=== PATIENT | male | born 1955 | race Two or more races ===

== ENCOUNTER 2020-01-12 09:26 | Inpatient (IN) | payer MEDICARE, MEDICAID ==
[~2020-01-12] VITALS: Ht 157.5 cm; Wt 59.0 kg
--- NOTE | 2020-01-12 09:26 | NUR ---
ED Nurse Note: Pt MORGANA RA 32 from the [facility] d/t generalized weakness and bilateral leg pain 05/15 x 2 days. Pt altered, A+Ox1. Respirations even and unlabored on room air. Vitals stable as documented.
[2020-01-12 09:30] VITALS: BP 142/79
--- NOTE | 2020-01-12 09:56 | NUR ---
ED Nurse Note: Xray @ bedside
--- NOTE | 2020-01-12 10:16 | NUR ---
ED Nurse Note: blood and urine sent to lab
[2020-01-12 10:29] LABS: HEMATOCRIT 35.5 % (42.0-52.0); HEMOGLOBIN 12.7 G/DL (14.2-18.0); MEAN CORPUSCULAR VOLUME 93 FL (80-99); PLATELET COUNT 99 K/UL (150-450); RED BLOOD COUNT 3.81 M/UL (4.70-6.10); RED CELL DISTRIBUTION WIDTH 11.7 % (11.6-14.8); WHITE BLOOD COUNT 11.6 K/UL (4.8-10.8)
[2020-01-12 10:30] LABS: APPEARANCE,URINE CLEAR; BILIRUBIN, URINE NEGATIVE (NEGATIVE); GLUCOSE, URINE (UA) NEGATIVE (NEGATIVE); KETONES,URINE 1+ (NEGATIVE); LEUKOCYTE ESTERASE ,URINE NEGATIVE (NEGATIVE); NITRITE,URINE NEGATIVE (NEGATIVE); PH,URINE 6 (4.5-8.0); PROTEIN,URINE NEGATIVE (NEGATIVE); UROBILINOGEN,URINE 8 MG/DL (0.0-1.0)
--- NOTE | 2020-01-12 10:32 | Emergency Room Report ---
History of Present Illness General Chief Complaint: Pain Source: Patient, EMS Present Illness HPI 64-year-old male, history of hypertension and diabetes presented from the street for right knee pain. Patient reports a history of hypertension and diabetes but is a very poor historian and seems confused on exam. It is unclear if he is homeless or from a home or intermediate or alf. Patient has no other complaints at this time but is repetitive on exam. He reports 8 out of 10 right knee pain. He does not describe any trauma. Allergies: Coded Allergies: No Known Allergies (Unverified , 01/12/20) COVID-19 Screening Contact w/high risk pt: No Recent Travel to affected area: No Experienced COVID-19 symptoms?: No Patient History Reviewed Nursing Documentation: PMH: Agreed; PSxH: Agreed Nursing Documentation-PM Past Medical History: No Stated History Review of Systems All Other Systems: limited - Due to patient's presentation with altered mental status Physical Exam Vital Signs Date Time Temp Pulse Resp B/P (MAP) Pulse Ox O2 Delivery O2 Flow Rate FiO2 01/12/20 09:16 82 20 140/76 (97) 99 Sp02 EP Interpretation: reviewed, normal General Appearance: non-toxic, thin Head: normocephalic, atraumatic Eyes: bilateral eye PERRL, bilateral eye EOMI ENT: hearing grossly normal, moist mucus membranes Neck: full range of motion, supple Respiratory: lungs clear, normal breath sounds, no rhonchi, no respiratory distress, no retraction, no wheezing Cardiovascular #1: normal peripheral pulses, regular rate, rhythm, no murmur Gastrointestinal: non tender, soft, non-distended, no guarding Musculoskeletal: other - Right knee mildly swollen full range of motion mild tenderness no erythema. Neurologic: alert, grossly normal, no focal defects, other - Moves all extremities equally Skin: normal color, warm/dry Medical Decision Making Diagnostic Impression: Primary Impression: Encephalopathy Additional Impressions: Generalized weakness Right knee pain ER Course MDM: Patient presented for right knee pain. He was altered on exam. It is unclear if he has a history of dementia. He presented by EMS from the street so history is limited. differential diagnosis: Dementia, failure to thrive, dehydration, did consider infectious process, arthritis, chronic pain. Clinical course Patient placed on stretcher. On campus monitor. After initial history and physical I ordered labs, CT scan of the brain, x-ray of the knee, pain medication Labs -no leukocytosis, urine drug screen negative On reevaluation: Patient remained mildly confused. Diagnosis -encephalopathy, generalized weakness, failure to thrive Plan to admit the patient to the medical floor for further observation and treatment. Again is unclear where the patient resides whether at home or nursing facility but currently not stable for discharge. Laboratory Tests Test 01/12/20 10:05 01/12/20 16:00 01/13/20 05:45 01/13/20 10:40 White Blood Count 11.6 K/UL (4.8-10.8) H Red Blood Count 3.81 M/UL (4.70-6.10) L Hemoglobin 12.7 G/DL (14.2-18.0) L Hematocrit 35.5 % (42.0-52.0) L Mean Corpuscular Volume 93 FL (80-99) Mean Corpuscular Hemoglobin 33.2 PG (27.0-31.0) H Mean Corpuscular Hemoglobin Concent 35.7 G/DL (32.0-36.0) Red Cell Distribution Width 11.7 % (11.6-14.8) Platelet Count 99 K/UL (150-450) L Mean Platelet Volume 7.1 FL (6.5-10.1) Neutrophils (%) (Auto) % (45.0-75.0) Lymphocytes (%) (Auto) % (20.0-45.0) Monocytes (%) (Auto) % (1.0-10.0) Eosinophils (%) (Auto) % (0.0-3.0) Basophils (%) (Auto) % (0.0-2.0) Differential Total Cells Counted 100 Neutrophils % (Manual) 81 % (45-75) H Lymphocytes % (Manual) 12 % (20-45) L Monocytes % (Manual) 7 % (1-10) Eosinophils % (Manual) 0 % (0-3) Basophils % (Manual) 0 % (0-2) Band Neutrophils 0 % (0-8) Platelet Estimate Decreased L Platelet Morphology Normal Red Blood Cell Morphology Normal Urine Color Yellow Urine Appearance Clear Urine pH 6 (4.5-8.0) Urine Specific [place] 1.015 (1.005-1.035) Urine Protein Negative (NEGATIVE) Urine Glucose (UA) Negative (NEGATIVE) Urine Ketones 1+ (NEGATIVE) H Urine Blood Negative (NEGATIVE) Urine Nitrite Negative (NEGATIVE) Urine Bilirubin Negative (NEGATIVE) Urine Urobilinogen 8 MG/DL (0.0-1.0) H Urine Leukocyte Esterase Negative (NEGATIVE) Sodium Level 135 MMOL/L (136-145) L 142 MMOL/L (136-145) Potassium Level 4.8 MMOL/L (3.5-5.1) 4.0 MMOL/L (3.5-5.1) Chloride Level 101 MMOL/L (98-107) 109 MMOL/L (98-107) H Carbon Dioxide Level 20 MMOL/L (21-32) L 23 MMOL/L (21-32) Anion Gap 14 mmol/L (5-15) 10 mmol/L (5-15) Blood Urea Nitrogen 32 mg/dL (7-18) H 42 mg/dL (7-18) H Creatinine 2.2 MG/DL (0.55-1.30) H 1.6 MG/DL (0.55-1.30) H Estimated Glomerular Filtration Rate 30.1 mL/min (>60) 43.5 mL/min (>60) Glucose Level 163 MG/DL (74-106) H 117 MG/DL (74-106) H Calcium Level 9.2 MG/DL (8.5-10.1) 8.1 MG/DL (8.5-10.1) L Total Bilirubin 2.1 MG/DL (0.2-1.0) H 1.6 MG/DL (0.2-1.0) H Direct Bilirubin 0.8 MG/DL (0.0-0.3) H 0.6 MG/DL (0.0-0.3) H Aspartate Amino Transferase (AST) 60 U/L (15-37) H 98 U/L (15-37) H Alanine Aminotransferase (ALT) 43 U/L (12-78) 41 U/L (12-78) Alkaline Phosphatase 76 U/L (46-116) 51 U/L (46-116) Total Protein 7.6 G/DL (6.4-8.2) 5.9 G/DL (6.4-8.2) L Albumin 3.3 G/DL (3.4-5.0) L 2.5 G/DL (3.4-5.0) L Globulin 4.3 g/dL 3.4 g/dL Albumin/Globulin Ratio 0.8 (1.0-2.7) L 0.7 (1.0-2.7) L Urine Opiates Screen Negative (NEGATIVE) Urine Barbiturates Screen Negative (NEGATIVE) Phencyclidine (PCP) Screen Negative (NEGATIVE) Urine Amphetamines Screen Negative (NEGATIVE) Urine Benzodiazepines Screen Negative (NEGATIVE) Urine Cocaine Screen Negative (NEGATIVE) Urine Marijuana (THC) Screen Negative (NEGATIVE) Serum Alcohol < 3 mg/dL Ammonia 68 umol/L (11-32) H 177 umol/L (11-32) H Hepatitis B Surface Antigen Pending Hepatitis B Surface Antibody, Quant Pending Hepatitis C Antibody Pending Last Vital Signs Date Time Temp Pulse Resp B/P (MAP) Pulse Ox O2 Delivery O2 Flow Rate FiO2 01/12/20 09:16 82 20 140/76 (97) 99 Disposition: ADMITTED INPATIENT Condition: Serious Scripts Unable to Obtain Active Prescriptions or Reported Meds Referrals: NOT CHOSEN IPA/,REFERRING (PCP) Lance Schmidt M.D. Jan 12, 2020 10:32
[2020-01-12 10:36] LABS: ANION GAP 14 mmol/L (5-15); BLOOD UREA NITROGEN 32 mg/dL (7-18); CALCIUM 9.2 MG/DL (8.5-10.1); CARBON DIOXIDE 20 MMOL/L (21-32); CHLORIDE 101 MMOL/L (98-107); CREATININE 2.2 MG/DL (0.55-1.30); POTASSIUM 4.8 MMOL/L (3.5-5.1); SODIUM 135 MMOL/L (136-145)
[2020-01-12 10:47] LABS: ALANINE AMINOTRANSFERASE 43 U/L (12-78); ALBUMIN 3.3 G/DL (3.4-5.0); ALBUMIN/GLOBULIN RATIO 0.8 (1.0-2.7); ALKALINE PHOSPHATASE 76 U/L (46-116); ASPARTATE AMINO TRANSFERASE 60 U/L (15-37); BILIRUBIN,TOTAL 2.1 MG/DL (0.2-1.0)
[2020-01-12 10:51] LABS: BILIRUBIN,DIRECT 0.8 MG/DL (0.0-0.3)
--- NOTE | 2020-01-12 11:07 | Diagnostic Imaging Report ---
Indications: Altered mental status Technique: Spiral acquisitions obtained through the brain. Angled axial and coronal 5 x 5 mm slices were reconstructed. Total dose length product 1072 mGycm. CTDI vol(s) 53 mGy. Dose reduction achieved using automated exposure control Comparison: None. Findings: There is age-related enlargement of the extra axial CSF spaces and to lesser extent the ventricles. There is also considerable cerebellar volume loss. No acute intercranial hemorrhage or edema. Banegas-white differentiation is normal. No mass effect nor midline shift. Visualized orbits are unremarkable. There is absent pneumatization of the left mastoids. There is evidence of some material within the left middle ear cavity. Impression: Cerebral volume loss, mostly cortical and cerebellar Negative for acute intracranial bleed or mass effect Nonpneumatized left mastoid air cells. There is evidence of some inflammatory material within the left middle ear cavity. Correlate with clinical findings The CT scanner at [facility] is accredited by the [employer] and the scans are performed using protocols designed to limit radiation exposure to as low as reasonably achievable to attain images of sufficient resolution adequate for diagnostic evaluation.
[2020-01-12 11:15] LABS: COLOR,URINE YELLOW
--- NOTE | 2020-01-12 11:50 | Diagnostic Imaging Report ---
Indication: Right knee pain Technique: 3 views of the right knee Comparison: None Findings: No acute fractures. No dislocations. No effusions. The joint spaces are preserved Impression: Negative
[2020-01-12] MEDS ORDERED: Acetaminophen 500mg (ES) tab ORAL PRN (12:30)
--- NOTE | 2020-01-12 12:46 | NUR ---
ED Nurse Note: Report given to Gianluca HENLEY MS floor.
--- NOTE | 2020-01-12 15:29 | NUR ---
NURSE NOTES: I received telephone report from LORY Tijerina; patient alert x1, Paraguayan speaking; on room air, no sing of distress and shortness of breath; no sing of chest pain; IV Left AC flushes well; skin intact except scabs on both lower extremities; side rails up x3, breaks engaged, bed at lowest position; call light within reach; belonging list signed by transferring and receiving nurse; will keep monitoring.
--- NOTE | 2020-01-12 15:35 | Diagnostic Imaging Report ---
Indication: Abnormal liver function tests, abnormal renal function tests Technique: Banegas-scale and duplex images of the upper abdomen were obtained Comparison: none Findings: Gallbladder demonstrates no gallstones. No gallbladder wall thickening nor pericholecystic fluid. It is nondistended. No gallbladder wall thickening or pericholecystic fluid. Sonographic Navarrete's sign could not be assessed due to patient noncommunicative. Common bile duct measures 3 mm in diameter. No intrahepatic biliary ductal dilatation. Liver demonstrates coarsened echogenicity. It demonstrates surface nodularity There is a nodular exophytic area which appears to be isointense to normal hepatic parenchyma extending off of the left hepatic lobe. This measures 2.7 x 2.9 cm. Portal vein and hepatic veins are patent. Pancreas is unremarkable. Spleen is unremarkable. However, prominent veins are seen in the splenic hilum. Left kidney measures 10.5 cm in length. Right kidney measures 9.3 cm length. Both kidneys demonstrate normal echogenicity. There is no hydronephrosis. No focal abnormality . Non-aneurysmal abdominal aorta . Impression: Negative for gallstones or dilated bile ducts Coarsened hepatic echogenicity with surface nodularity, suggestive of cirrhosis 2.7 x 2.9 cm exophytic left lobe liver mass versus normal lobulated parenchyma. Recommend contrast CT for better characterization Possible splenic hilar varices. Normal size spleen
--- NOTE | 2020-01-12 15:44 | NUR ---
NURSE NOTES: I communicated MD Romano to get admission order; waiting for order
[2020-01-12] MEDS: D5NS 1,000 ML IV SCH (15:49)
[2020-01-12] MEDS ORDERED: Haloperidol 5mg/ml Inj IM PRN (16:00)
[2020-01-12 16:20] VITALS: BP 130/88
--- NOTE | 2020-01-12 17:10 | Diagnostic Imaging Report ---
Indication: Chest pain Technique: One view of the chest Comparison: none Findings: Lungs and pleural spaces are clear. Heart size is normal. Impression: No acute process
[2020-01-12] MEDS: Lactulose 20gm/30ml UDC ORAL SCH (17:22)
--- NOTE | 2020-01-12 17:30 | NUR ---
NURSE NOTES: Patient risk for fall; patient instructed to call for help; side rials up x3, breaks engaged, bed at lowest position, bed alarm on, call light within reach; sign at the door showing that patient is risk for fall; nursing executive Tremaine is aware that patient is risk for fall; charge nurse Sreedhar is aware that patient is risk for fall; will keep monitoring.
[2020-01-12] MEDS: Piperacillin/Tazobactam 3.375 GM in NS 110 ML IVPB SCH ×2 (18:13→23:02)
--- NOTE | 2020-01-12 19:33 | NUR ---
HAND-OFF: Report given to LORY West. Endorsed to the incoming nurse that patient is risk for fall; patient sleeping quitly;
[2020-01-12 19:51] VITALS: BP 127/50
--- NOTE | 2020-01-12 20:19 | NUR ---
NURSE NOTES: Received patient awake, verbal, speaks little Cuban, assisted to the bathroom to urinate. Bed lowered, alarm on, yellow socks on, call light within reach.
[2020-01-12] MEDS: Heparin 5000 units/ml inj SUBQ SCH (21:00)
--- NOTE | 2020-01-12 22:23 | Initial Psychiatric Evaluation ---
Psychiatry Consultation Psychiatry Consultation Chief Complaint: Pain Allergies: Coded Allergies: No Known Allergies (Unverified , 01/12/20) Medication History Unable to Obtain Active Prescriptions or Reported Meds Objective Data Height (Feet): 5 Height (Inches): 2.00 Weight (Pounds): 130 Davin Swann MD Jan 12, 2020 22:23
--- NOTE | 2020-01-12 23:00 | History and Physical Report ---
DATE OF ADMISSION: 01/12/2020 CHIEF COMPLAINT: Encephalopathy and altered mental status. HISTORY OF PRESENT ILLNESS: Patient is 64-year-old male. He apparently has no past medical history. He was found on the street confused and daze. He was brought to the emergency room. On evaluation there, he had a head CT that was negative. Laboratories were significant for a slight leukocytosis of 12,000. UA was clear. Chest x-ray results are pending. He did have a low sodium and creatinine of 2.2. He is now admitted for further evaluation for continued altered mentation. PAST MEDICAL HISTORY: None. PAST SURGICAL HISTORY: None. CURRENT MEDICATIONS: None. ALLERGIES: None. FAMILY HISTORY: None. SOCIAL HISTORY: Patient denies any tobacco, ethanol, or drugs. REVIEW OF SYSTEMS: GENERAL: No fevers or chills. HEENT: No headaches or visual changes. CARDIOPULMONARY: No chest pain or shortness of breath. GASTROINTESTINAL: No nausea or vomiting. GENITOURINARY: No urgency or frequency. MUSCULOSKELETAL: No joint pain or swelling. NEUROLOGIC: No evidence of seizures. PHYSICAL EXAMINATION: VITAL SIGNS: Temperature 97.9, pulse 86, respirations 17, blood pressure 130/88. GENERAL: Patient is well developed, no apparent distress. HEART: Regular rate and rhythm. LUNGS: Clear. ABDOMEN: Soft, nontender, nondistended. EXTREMITIES: Without clubbing or cyanosis. NEUROLOGIC: The patient is confused. Only knows his name. There is some questionable asterixis noted. LABORATORY DATA: UA clear. White count 12, hemoglobin 12, hematocrit 35. Sodium 135, creatinine 2.2. Total bilirubin of 2.1. Toxicology screen was negative. ASSESSMENT: This is a 64-year-old male with no past medical history who presents with altered mental status, suspect underlying chronic liver disease, and possible hepatic encephalopathy. PLAN: 1. Check an ammonia level. 2. Follow up abdominal ultrasound. 3. IV hydration. 4. Empiric antibiotics until cultures return. Stephon Romano M.D. DR: SHAWN JOB#: [id number] CC:
[2020-01-13] VITALS (8 sets, daily range): BP systolic 105–156; BP diastolic 49–84
[2020-01-13] MEDS: D5NS 1,000 ML IV SCH ×2 (02:20→15:49)
[2020-01-13] MEDS: Piperacillin/Tazobactam 3.375 GM in NS 110 ML IVPB SCH ×3 (04:58→21:16)
[2020-01-13 06:30] LABS: AMMONIA 177 umol/L (11-32)
[2020-01-13 06:43] LABS: ALANINE AMINOTRANSFERASE 41 U/L (12-78); ALBUMIN 2.5 G/DL (3.4-5.0); ALBUMIN/GLOBULIN RATIO 0.7 (1.0-2.7); ALKALINE PHOSPHATASE 51 U/L (46-116); ANION GAP 10 mmol/L (5-15); ASPARTATE AMINO TRANSFERASE 98 U/L (15-37); BILIRUBIN,DIRECT 0.6 MG/DL (0.0-0.3); BILIRUBIN,TOTAL 1.6 MG/DL (0.2-1.0); BLOOD UREA NITROGEN 42 mg/dL (7-18); CALCIUM 8.1 MG/DL (8.5-10.1); CARBON DIOXIDE 23 MMOL/L (21-32); CHLORIDE 109 MMOL/L (98-107); CREATININE 1.6 MG/DL (0.55-1.30); SODIUM 142 MMOL/L (136-145)
--- NOTE | 2020-01-13 07:00 | NUR ---
NURSE NOTES: Received patient in bed. Awake, alert x1. On room air, respirations unlabored. Iv in the right forearm, site is intact, IVF running as ordered. Pateint denies pain at this time. Patient is a high fall risk. CN and TECHNICIAN TRAINEE made aware. Patient placed closed to the nurse's station for safety. Patient oriented to room and surroundings. Patient educated on use of the call light and informed to call for restroom needs, patient returned demonstration. Bed alarm placed on high sensitivity. Bed rails up x4, bed at the lowest position, bed locked, call light within reach. Yellow socks in place.
--- NOTE | 2020-01-13 07:00 | NUR ---
HAND-OFF: Report given to Jena HENLEY.
--- NOTE | 2020-01-13 07:25 | NUR ---
HAND-OFF: Report given to Justin Bass RN.
[2020-01-13] MEDS: Lactulose 20gm/30ml UDC ORAL SCH ×3 (08:25→17:18)
[2020-01-13] MEDS: Heparin 5000 units/ml inj SUBQ SCH ×2 (09:00→21:00)
--- NOTE | 2020-01-13 09:00 | NUR ---
NURSE NOTES: Heparin held d/t platelets of 99.
--- NOTE | 2020-01-13 10:04 | General Progress Note ---
Assessment/Plan Problem List: (1) Cirrhosis ICD Codes: K74.60 - Unspecified cirrhosis of liver SNOMED: 81540380 (2) Hepatic encephalopathy ICD Codes: K72.90 - Hepatic failure, unspecified without coma SNOMED: 86560259 (3) Encephalopathy ICD Codes: G93.40 - Encephalopathy, unspecified SNOMED: 62594564 (4) Pain ICD Codes: R52 - Pain, unspecified SNOMED: 76176326 Status: stable, not improved Assessment/Plan: Continue current treatment. Increase lactulose 30 cc 3 times daily. Will trend ammonia level. IV hydration. Continue DVT and stress ulcer prophylaxis. Check a hepatitis panel. Will consider GI consultation. Subjective ROS Limited/Unobtainable: Yes Constitutional: Reports: malaise, weakness HEENT: Reports: no symptoms Cardiovascular: Reports: no symptoms Respiratory: Reports: no symptoms Gastrointestinal/Abdominal: Reports: no symptoms Genitourinary: Reports: no symptoms Neurologic/Psychiatric: Reports: pre-existing deficit Endocrine: Reports: no symptoms Hematologic/Lymphatic: Reports: no symptoms Allergies: Coded Allergies: No Known Allergies (Unverified , 01/12/20) All Systems: reviewed and negative except above Subjective There is been no overnight events. Patient remains confused. Ammonia level is increasing. Patient is been compliant with medications including his lactulose. No fevers or chills. No chest pain or shortness of breath. No cough Objective Last 24 Hour Vital Signs Date Time Temp Pulse Resp B/P (MAP) Pulse Ox O2 Delivery O2 Flow Rate FiO2 01/13/20 08:00 98.4 69 18 105/52 (69) 100 01/13/20 04:00 98.0 90 20 119/56 (77) 97 01/13/20 00:25 98.4 82 18 114/59 (77) 98 01/12/20 20:42 Room Air 01/12/20 19:51 98.0 101 18 127/50 (75) 99 01/12/20 18:02 Room Air 01/12/20 16:20 97.9 86 17 130/88 (102) 86 01/12/20 14:50 98.3 68 16 135/87 99 Room Air 01/12/20 11:23 98.2 Intake and Output 01/12/20 01/13/20 19:00 07:00 Intake Total 150 ml 740.0 ml Balance 150 ml 740.0 ml Intake Oral 240 ml IV Total 150 ml 500.0 ml # Voids 1 4 Laboratory Tests 01/12/20 10:05: White Blood Count 11.6H, Red Blood Count 3.81L, Hemoglobin 12.7L, Hematocrit 35.5L, Mean Corpuscular Volume 93, Mean Corpuscular Hemoglobin 33.2H, Mean Corpuscular Hemoglobin Concent 35.7, Red Cell Distribution Width 11.7, Platelet Count 99L, Mean Platelet Volume 7.1, Neutrophils (%) (Auto) , Lymphocytes (%) ( Auto) , Monocytes (%) (Auto) , Eosinophils (%) (Auto) , Basophils (%) (Auto) , Differential Total Cells Counted 100, Neutrophils % (Manual) 81H, Lymphocytes % (Manual) 12L, Monocytes % (Manual) 7, Eosinophils % (Manual) 0, Basophils % ( Manual) 0, Band Neutrophils 0, Platelet Estimate DecreasedL, Platelet Morphology Normal, Red Blood Cell Morphology Normal, Urine Color Yellow, Urine Appearance Clear, Urine pH 6, Urine Specific [place] 1.015, Urine Protein Negative, Urine Glucose (UA) Negative, Urine Ketones 1+H, Urine Blood Negative, Urine Nitrite Negative, Urine Bilirubin Negative, Urine Urobilinogen 8H, Urine Leukocyte Esterase Negative, Sodium Level 135L, Potassium Level 4.8, Chloride Level 101, Carbon Dioxide Level 20L, Anion Gap 14, Blood Urea Nitrogen 32H, Creatinine 2.2H, Estimat Glomerular Filtration Rate 30.1, Glucose Level 163H, Calcium Level 9.2, Total Bilirubin 2.1H, Direct Bilirubin 0.8H, Aspartate Amino Transf (AST/SGOT) 60H, Alanine Aminotransferase (ALT/SGPT) 43, Alkaline Phosphatase 76, Total Protein 7.6, Albumin 3.3L, Globulin 4.3, Albumin/Globulin Ratio 0.8L, Urine Opiates Screen Negative, Urine Barbiturates Screen Negative, Phencyclidine (PCP) Screen Negative, Urine Amphetamines Screen Negative, Urine Benzodiazepines Screen Negative, Urine Cocaine Screen Negative, Urine Marijuana (THC) Screen Negative, Serum Alcohol < 3 01/12/20 16:00: Ammonia 68H 01/13/20 05:45: Sodium Level 142, Potassium Level 4.0, Chloride Level 109H, Carbon Dioxide Level 23, Anion Gap 10, Blood Urea Nitrogen 42H, Creatinine 1.6H, Estimat Glomerular Filtration Rate 43.5, Glucose Level 117H, Calcium Level 8.1L, Total Bilirubin 1.6H, Direct Bilirubin 0.6H, Aspartate Amino Transf (AST/SGOT) 98H, Alanine Aminotransferase (ALT/SGPT) 41, Alkaline Phosphatase 51, Total Protein 5.9L, Albumin 2.5L, Globulin 3.4, Albumin/Globulin Ratio 0.7L, Ammonia 177H Height (Feet): 5 Height (Inches): 2.00 Weight (Pounds): 130 General Appearance: WD/WN, alert, confused Cardiovascular: normal rate Respiratory/Chest: chest wall non-tender, lungs clear, normal breath sounds, no respiratory distress Abdomen: normal bowel sounds, non tender, soft, no organomegaly Edema: no edema noted Arm (L), no edema noted Arm (R), no edema noted Leg (L), no edema noted Leg (R), no edema noted Pedal (L), no edema noted Pedal (R), no edema noted Generalized Neurologic: commercial insurance underwriter II-XII grossly normal, alert, oriented x 3 Stephon Romano MD Jan 13, 2020 10:04
--- NOTE | 2020-01-13 10:17 | NUR ---
CASE MANAGEMENT:INITIAL REVIEW 64 YR OLD MALE BIBA FROM THE STRE[address] CC;PAIN PMH;UNKNOWN SI;ENCEPHALOPATHY. GENERALIZED WEAKNESS. 98.3 86 20 142/79 99% ON RA WBC 11.6 NA 135 BUN 32 CR 2.2 BG 163 T-BILI 2.1 AMMONIA 68 CXR ~ NO ACUTE PROCESS KNEE X-RAY ~ NEGATIVE HEAD CT ~ Negative for acute intracranial bleed or mass effect. Cerebral volume loss, mostly cortical and cerebellar. ABD US ~ Negative for gallstones or dilated bile ducts IS;IVF NS BOLUS X1 ACETAMINOPHEN PO X1 ADMITTED TO MED SURG AT 1603 ON 01/12/2020 MED SURG STATUS DCP;PATIENT IS HOMELESS
--- NOTE | 2020-01-13 12:15 | NUR ---
*-* INSURANCE *-* ALL CLINICALS AND REVIEWS HAVE BEEN FAXED TO: [facility]/[place]) MED [employer] HANDLING PROFESSIONAL P: [phone] F: [phone] (VERIFIED WITH KARRI AT [facility], THAT THEY ARE AFFILIATED WITH [facility] AND THAT THEY HANDLE THE ADMISSIONS, ADVISED TO FAX FACE SHEET OVER TO [facility]) & [place]LENA F: [phone] Addendum: 01/13/20 at 1412 by CHAR BROWN CM NCM: NICKY
--- NOTE | 2020-01-13 14:01 | NUR ---
GAS OPERATIONS ANALYST NOTE SW met w/ pt and attempted to obtain information through green coffee blender [employer] #[id number]. Pt presents as confused and A&O 1x. Pt reports he is living w/ his brother but he was unable to recall his brother's name. Pt was unable to recall the address as well. SW spoke w/ Officer Irvin from [facility] [phone] that pt is not reported as missing. ALFONSO contacted possible family member, Chelly Nava [phone]. Chelly confirmed she is pt's sister. Chelly is monolingual Turkish. Chelly's son, Yeyo who is bilingual confirmed pt is residing w/ Chelly at [address] [place], [place] [id number]. Pt has been missing for two days. Addendum: 01/13/20 at 1453 by SHELLEY HAMILTON Per Yeyo, pt becomes more confused when he does not take medication. He was unable to recall the name of home medication.
--- NOTE | 2020-01-13 15:18 | NUR ---
P.T Note: late entry 0945 P.T evaluation completed and tx initiated. Please refer to P.T evaluation for full report.
--- NOTE | 2020-01-13 16:39 | Consultation ---
Consult Note Consult Note INTERNAL MEDICINE CONSULTATION HISTORY OF PRESENT ILLNESS: Patient is 64-year-old male. He no past medical history. He was found on the street confused and daze. He was brought to the emergency room. On evaluation there, he had a head CT that was negative. Laboratories were significant for a slight leukocytosis of 12,000. UA was clear. Chest x-ray results are pending. He did have a low sodium and creatinine of 2.2. He is now admitted for further evaluation for continued altered mentation. PAST MEDICAL HISTORY: None. PAST SURGICAL HISTORY: None. CURRENT MEDICATIONS: None. ALLERGIES: None. FAMILY HISTORY: None. SOCIAL HISTORY: Patient denies any tobacco, ethanol, or drugs. REVIEW OF SYSTEMS: GENERAL: No fevers or chills. HEENT: No headaches or visual changes. CARDIOPULMONARY: No chest pain or shortness of breath. GASTROINTESTINAL: No nausea or vomiting. GENITOURINARY: No urgency or frequency. MUSCULOSKELETAL: No joint pain or swelling. NEUROLOGIC: No evidence of seizures. PHYSICAL EXAMINATION: VITAL SIGNS: Temperature 97.9, pulse 86, respirations 17, blood pressure 130/88. GENERAL: Patient is well developed, no apparent distress. HEART: Regular rate and rhythm. LUNGS: Clear. ABDOMEN: Soft, nontender, nondistended. EXTREMITIES: Without clubbing or cyanosis. NEUROLOGIC: The patient is confused. Only knows his name. There is some questionable asterixis noted. LABORATORY DATA: UA clear. White count 12, hemoglobin 12, hematocrit 35. Sodium 135, creatinine 2.2. Total bilirubin of 2.1. Toxicology screen was negative. ASSESSMENT: This is a 64-year-old male with no past medical history who presents with altered mental status, suspect underlying chronic liver disease, and possible hepatic encephalopathy. PLAN: 1. Check an ammonia level. 2. Follow up abdominal ultrasound. 3. IV hydration. 4. Empiric antibiotics until cultures return. Abhinav Wang M.D. Abhinav Wang MD Jan 13, 2020 16:39
--- NOTE | 2020-01-13 19:18 | NUR ---
NURSE NOTES: Received report from LORY Anderson. Pt sleeping in bed. Pt confused and high fall risk. Georgian speaking. Bed alarm set up zone 2. IV site intact and running IVF. No labored breathing, no acute distress noted. Bed locked, alarm on, side rails up, call light within reach. Will continue to monitor.
[2020-01-13] MEDS: LORazepam Inj 2mg/ml 1ml IV PRN (21:37)
--- NOTE | 2020-01-13 22:45 | Progress Note ---
DATE: 01/13/2020 SUBJECTIVE: Patient is in bed. No behavior issues noted. Patient is more confused than baseline per family. Patient is not having any behavior issues and is responding to internal stimuli. Waxing and waning consciousness. On bilateral soft restraints. MENTAL STATUS EXAMINATION: Patient is alert and oriented times self, place. Mood is neutral. Affect is flat. Thought process, there is a paucity of thought content. Thought content, no suicidal or homicidal ideation. Cognition is impaired. Insight and judgment is impaired. ASSESSMENT: Acute encephalopathy. PLAN: 1. Continue the risperidone 0.5 at bedtime. 2. Discussed with the nurse. Davin Swann M.D. DR: ROVERTO JOB#: [id number] CC:
[2020-01-14] MEDS: D5NS 1,000 ML IV SCH (03:26)
[2020-01-14 04:00] VITALS: BP 128/63
[2020-01-14] MEDS: Piperacillin/Tazobactam 3.375 GM in NS 110 ML IVPB SCH ×3 (05:04→21:16)
[2020-01-14] MEDS: LORazepam Inj 2mg/ml 1ml IV PRN (05:33)
--- NOTE | 2020-01-14 07:25 | NUR ---
HAND-OFF: Report given to LORY Live.
--- NOTE | 2020-01-14 07:42 | NUR ---
NURSE NOTES: Patient seen on rounds, asleep but rousable. Patient is AxOx1, not in distress, currently not in pain. PIV on left AC intact and infusing IV ATB. Patient is high fall risk. Bed alarms set on zone 2, siderails up x3, fall precaution sign on door, yellow non-skid socks and yellow gown on. RN endorsed that patient is high risk. Will do frequent visual rounds and continue to monitor.
[2020-01-14 08:00] VITALS: BP 137/63
[2020-01-14] MEDS: Heparin 5000 units/ml inj SUBQ SCH ×2 (09:00→20:28)
[2020-01-14] MEDS: Lactulose 20gm/30ml UDC ORAL SCH ×3 (09:30→17:09)
--- NOTE | 2020-01-14 11:04 | Pulmonology Progress Note ---
Assessment/Plan Assessment/Plan ASSESSMENT: This is a 64-year-old male with no past medical history who presents with altered mental status, suspect underlying chronic liver disease, and possible hepatic encephalopathy. PLAN: 1. Follow ammonia. 2. Follow up abdominal ultrasound. 3. IV hydration. 4. Empiric antibiotics until cultures return. 5. GI eval Abhinav Wang M.D. Subjective Interval Events: None new; more awake Constitutional: Reports: no symptoms HEENT: Repors: no symptoms Respiratory: Reports: no symptoms Cardiovascular: Reports: no symptoms Gastrointestinal/Abdominal: Reports: no symptoms Allergies: Coded Allergies: No Known Allergies (Unverified , 01/12/20) Objective Last 24 Hour Vital Signs Date Time Temp Pulse Resp B/P (MAP) Pulse Ox O2 Delivery O2 Flow Rate FiO2 01/14/20 09:00 Room Air 01/14/20 08:00 96.8 69 18 137/63 (87) 99 01/14/20 04:00 98.3 73 18 128/63 (84) 100 01/13/20 23:43 97.3 64 16 105/50 (68) 98 01/13/20 20:42 Room Air 01/13/20 20:00 98.1 83 18 116/66 (83) 99 01/13/20 16:00 98.5 69 19 113/64 (80) 100 01/13/20 12:00 98.3 64 18 110/49 (69) 100 Intake and Output 01/13/20 01/14/20 19:00 07:00 Intake Total 1200 ml 250 ml Output Total 700 ml Balance 1200 ml -450 ml Intake Oral 375 ml IV Total 825 ml Other 250 ml Output Urine Total 700 ml # Voids 6 # Bowel Movements 3 General Appearance: no acute distress HEENT: normocephalic Respiratory/Chest: chest wall non-tender Cardiovascular: normal peripheral pulses Abdomen: normal bowel sounds Laboratory Tests 01/14/20 08:50: Ammonia 110H Current Medications Medications (Trade) Dose Ordered Sig/Chris Route PRN Reason Start Time Stop Time Status Last Admin Dose Admin Acetaminophen (Tylenol) 500 mg Q4H PRN ORAL Mild Pain (Pain Scale 1-3) 01/12/20 12:30 02/11/20 12:29 Dextrose/Sodium Chloride 1,000 ml @ 75 mls/hr [id number] IV 01/12/20 13:00 02/11/20 12:59 01/14/20 03:26 Haloperidol Lactate (Haldol) 2 mg Q6H PRN IM Agitation 01/12/20 16:00 02/26/20 15:59 Heparin Sodium (Porcine) (Heparin 5000 units/ml) 5,000 units EVERY 12 HOURS SUBQ 01/12/20 21:00 02/26/20 20:59 Lactulose (Cephulac) 30 gm THREE TIMES A DAY ORAL 01/13/20 13:00 02/12/20 12:59 01/14/20 09:30 Lorazepam (Ativan 2mg/ml 1ml) 1 mg Q4H PRN IV For Anxiety 01/12/20 16:00 01/19/20 15:59 01/14/20 05:33 Ondansetron HCl (Zofran) 4 mg Q6H PRN IVP Nausea & Vomiting 01/12/20 12:30 02/11/20 12:29 Piperacillin Sod/ Tazobactam Sod 3.375 gm/Sodium Chloride 110 ml @ 27.5 mls/hr EVERY 8 HOURS IVPB 01/12/20 17:00 01/17/20 16:59 01/14/20 05:04 Risperidone (RisperDAL) 0.5 mg BEDTIME ORAL 01/13/20 21:00 02/27/20 20:59 01/13/20 21:16 Abhinav Wang MD Jan 14, 2020 11:04
--- NOTE | 2020-01-14 11:27 | NUR ---
*-* INSURANCE *-* ALL CLINICALS AND REVIEWS HAVE BEEN FAXED TO: [facility] ([facility] MED [facility] NCM: NICKY P: [phone] F: [phone] (VERIFIED WITH KARRI AT [facility], THAT THEY ARE AFFILIATED WITH [facility] AND THAT THEY HANDLE THE ADMISSIONS, ADVISED TO FAX FACE SHEET OVER TO [facility]) & HELENA F: [phone]
--- NOTE | 2020-01-14 11:38 | NUR ---
CASE MANAGEMENT:REVIEW SI;CHRONIC LIVER DISEASE. HEPATIC ENCEPHALOPATHY. 96.8 83 18 105/50 98% ON RA AMMONIA 110 IS;ZOSYN IV Q8 HRS LACTULOSE PO TID IVF D5W @ 75 ML/HR HALDOL IM Q6 HRS RISPERDAL PO HS MED SURG STATUS DCP;PATIENT IS HOMELESS PLAN;FOLLOW UP AMMONIA FOLLOW UP ABD ULTRASOUND GI EVALUATION
[2020-01-14 12:00] VITALS: BP 106/59
--- NOTE | 2020-01-14 14:32 | NUR ---
PLANT SCIENCE PROFESSOR NOTE CALL RECEIVED FROM NICKY WITH [facility] [phone] CALLED TO CONFIRM THAT PATIENT IS STILL INPATIENT AT THIS TIME. ALSO REQUESTED TO CONFIRM ATTENDING MD IS DR MALIN. INFO VERIFIED AND CONFIRMED TO NICKY.
[2020-01-14 16:00] VITALS: BP 107/72
--- NOTE | 2020-01-14 17:14 | Consultation ---
DATE OF CONSULTATION: 01/14/2020 CHIEF COMPLAINT: Encephalopathy. HISTORY OF PRESENT ILLNESS: The patient is a 64-year-old male with alcoholic cirrhosis, hypertension, diabetes, came to the hospital with complaint of the right knee pain. The patient had elevated ammonia level and evidence of cirrhosis. GI consult requested for further evaluation. PAST MEDICAL HISTORY: Significant for: 1. History of diabetes. 2. Hypertension. 3. Alcoholic cirrhosis. PAST SURGICAL HISTORY: Unknown. ALLERGIES: No known allergies. MEDICATIONS: Please see medication reconciliation list. SOCIAL HISTORY: The patient has a remote history of alcohol usage. Denies any alcohol at this time. FAMILY HISTORY: Noncontributory. PHYSICAL EXAMINATION: VITAL SIGNS: Temperature 96.8, pulse 69, respirations 18, blood pressure 137/63. HEENT: Normocephalic and atraumatic. Sclerae anicteric. NECK: Supple. No evidence of obvious lymphadenopathy. CARDIOVASCULAR: Regular rate and rhythm. Plus S1, S2. LUNGS: Decreased breath sounds bilaterally based on the supine exam. ABDOMEN: Soft, nontender. No rebound. No guarding. No peritoneal sign. EXTREMITIES: No cyanosis. No clubbing. No edema. LABORATORY AND DIAGNOSTIC DATA: White count 8.6, hemoglobin 12, hematocrit 35, platelet count is 99. Sodium 142, potassium 4.0, BUN is 42, creatinine is 1.6. Bilirubin is 1.6, AST of 98, ALT of 41, alkaline phosphatase of 51. Ammonia level as high as 177 and today is 110. ASSESSMENT AND PLAN: The patient is a 64-year-old male with alcoholic cirrhosis with encephalopathy, thrombocytopenia, questionable liver mass seen on the abdominal ultrasound. PLAN: Add Xifaxan to lactulose. Plan to do a CT when the patient creatinine is normalized. I am going to order alpha fetoprotein. Anemia workup. Discontinue IV fluids. We will follow labs and make further recommendation above results are available. I want thank to Dr. Wang for this kind referral. Nick Kirkland M.D. DR: Jakub JOB#: [id number] CC: Abhinav Wang M.D.; Fax#: [phone]
--- NOTE | 2020-01-14 19:39 | NUR ---
HAND-OFF: Report given to Patricia HENLEY. Addendum: 01/14/20 at 2 by Maria T Wynne RN Endorsed that patient is a high fall risk, fall sign on door, yellow gown and socks on, bed low and locked, alarms on zone 2, endorsed to do frequent visual rounds.
--- NOTE | 2020-01-14 19:40 | NUR ---
NURSE NOTES: Patient is in bed, alert x1. On room air with no signs of distress or SOB. IV intact and patent. Fall precautions. Bed locked and in lowest position. Bed alarm activated, non-skid socks on and yellow gown. Staff notified of fall risk. Will continue to monitor the patient.
[2020-01-14 20:00] VITALS: BP 112/65
--- NOTE | 2020-01-14 20:50 | Psych Consult Progress Note ---
Psychiatry Progress Note Psychiatry Progress Note Medications Current Medications Medications (Trade) Dose Ordered Sig/Chris Route PRN Reason Start Time Stop Time Status Last Admin Dose Admin Acetaminophen (Tylenol) 500 mg Q4H PRN ORAL Mild Pain (Pain Scale 1-3) 01/12/20 12:30 02/11/20 12:29 Haloperidol Lactate (Haldol) 2 mg Q6H PRN IM Agitation 01/12/20 16:00 02/26/20 15:59 Heparin Sodium (Porcine) (Heparin 5000 units/ml) 5,000 units EVERY 12 HOURS SUBQ 01/12/20 21:00 02/26/20 20:59 Lactulose (Cephulac) 30 gm THREE TIMES A DAY ORAL 01/13/20 13:00 02/12/20 12:59 01/14/20 17:09 Lorazepam (Ativan 2mg/ml 1ml) 1 mg Q4H PRN IV For Anxiety 01/12/20 16:00 01/19/20 15:59 01/14/20 05:33 Ondansetron HCl (Zofran) 4 mg Q6H PRN IVP Nausea & Vomiting 01/12/20 12:30 02/11/20 12:29 Piperacillin Sod/ Tazobactam Sod 3.375 gm/Sodium Chloride 110 ml @ 27.5 mls/hr EVERY 8 HOURS IVPB 01/12/20 17:00 01/17/20 16:59 01/14/20 13:28 Rifaximin (Xifaxan) 550 mg EVERY 12 HOURS ORAL 01/14/20 21:00 01/21/20 20:59 Risperidone (RisperDAL) 0.5 mg BEDTIME ORAL 01/13/20 21:00 02/27/20 20:59 01/13/20 21:16 Allergies: Coded Allergies: No Known Allergies (Unverified , 01/12/20) Objective Data Height (Feet): 5 Height (Inches): 2.00 Weight (Pounds): 130 Assessment/Plan Status: stable, not improved Davin Swann MD Jan 14, 2020 20:50
[2020-01-15] VITALS: BP 119/66
[2020-01-15 03:56] VITALS: BP 114/69
[2020-01-15] MEDS: Piperacillin/Tazobactam 3.375 GM in NS 110 ML IVPB SCH ×3 (05:28→21:35)
--- NOTE | 2020-01-15 06:37 | General Progress Note ---
Assessment/Plan Problem List: (1) Anemia ICD Codes: D64.9 - Anemia, unspecified SNOMED: 816082593 (2) Renal insufficiency ICD Codes: N28.9 - Disorder of kidney and ureter, unspecified SNOMED: 725163051, 915583492 (3) Cirrhosis ICD Codes: K74.60 - Unspecified cirrhosis of liver SNOMED: 73469831 (4) Hepatic encephalopathy ICD Codes: K72.90 - Hepatic failure, unspecified without coma SNOMED: 59739797 Status: stable, not improved Assessment/Plan: lactulose and Xifaxan fu ammonia level fu AFP CT when [place] [employer] improved on oral diet Subjective ROS Limited/Unobtainable: Yes Allergies: Coded Allergies: No Known Allergies (Unverified , 01/12/20) Objective Last 24 Hour Vital Signs Date Time Temp Pulse Resp B/P (MAP) Pulse Ox O2 Delivery O2 Flow Rate FiO2 01/15/20 03:56 97.6 79 12 114/69 (84) 100 01/15/20 00:00 98.4 74 12 119/66 (83) 100 01/14/20 21:00 Room Air 01/14/20 20:00 98.1 71 12 112/65 (81) 99 01/14/20 16:00 97.2 66 18 107/72 (84) 100 01/14/20 12:00 97.0 67 20 106/59 (75) 98 01/14/20 09:00 Room Air 01/14/20 08:00 96.8 69 18 137/63 (87) 99 Intake and Output 01/14/20 01/15/20 19:00 07:00 Intake Total 1087.5 ml 480 ml Balance 1087.5 ml 480 ml Intake Oral 300 ml 480 ml IV Total 787.5 ml # Voids 2 3 # Bowel Movements 3 Laboratory Tests 01/14/20 08:50: Ammonia 110H Height (Feet): 5 Height (Inches): 2.00 Weight (Pounds): 130 General Appearance: alert EENT: normal ENT inspection Neck: supple Cardiovascular: normal rate Respiratory/Chest: decreased breath sounds Abdomen: normal bowel sounds, non tender, soft Extremities: non-tender Nick Kirkland MD Jan 15, 2020 06:37
[2020-01-15 07:02] LABS: HEMATOCRIT 32.1 % (42.0-52.0); HEMOGLOBIN 11.5 G/DL (14.2-18.0); MEAN CORPUSCULAR VOLUME 93 FL (80-99); PLATELET COUNT 82 K/UL (150-450); RED BLOOD COUNT 3.45 M/UL (4.70-6.10); RED CELL DISTRIBUTION WIDTH 11.4 % (11.6-14.8); WHITE BLOOD COUNT 4.4 K/UL (4.8-10.8)
[2020-01-15 07:17] LABS: INR 1.2 (0.9-1.1)
--- NOTE | 2020-01-15 07:21 | NUR ---
HAND-OFF: Report given to LORY Adams.
--- NOTE | 2020-01-15 07:41 | NUR ---
NURSE NOTES: Patient awake, alert x1, eating break fast; patient confused; on room air, no sign of distress and shortness of breath; no sing of chest pain; IV Right Wrist 22G TKO; patient fall risk, side rails up x3, bed at lowest position, breaks engaged, bed alarm on; fall risk sign at the doors, patient on yellow gown and socks; nursing home administrator Benoit notified that patine risk for fall; call light and urinal within reach; will keep monitoring.
[2020-01-15 07:56] LABS: ALANINE AMINOTRANSFERASE 53 U/L (12-78); ALBUMIN 2.5 G/DL (3.4-5.0); ALBUMIN/GLOBULIN RATIO 0.7 (1.0-2.7); ALKALINE PHOSPHATASE 51 U/L (46-116); ANION GAP 10 mmol/L (5-15); ASPARTATE AMINO TRANSFERASE 89 U/L (15-37); BILIRUBIN,TOTAL 1.7 MG/DL (0.2-1.0); BLOOD UREA NITROGEN 13 mg/dL (7-18); CALCIUM 8.4 MG/DL (8.5-10.1); CARBON DIOXIDE 22 MMOL/L (21-32); CHLORIDE 117 MMOL/L (98-107); CREATININE 1.2 MG/DL (0.55-1.30); POTASSIUM 4.2 MMOL/L (3.5-5.1); SODIUM 149 MMOL/L (136-145)
[2020-01-15 08:00] VITALS: BP 120/72
[2020-01-15 08:03] LABS: BILIRUBIN,DIRECT 1.7 MG/DL (0.0-0.3)
[2020-01-15 08:17] LABS: AMMONIA 80 umol/L (11-32)
[2020-01-15 08:35] LABS: % IRON SATURATION 58 % (15-50); IRON 99 ug/dL (50-175); TOTAL IRON BINDING CAPACITY 171 ug/dL (250-450)
[2020-01-15] MEDS: Lactulose 20gm/30ml UDC ORAL SCH ×3 (09:00→18:03)
[2020-01-15] MEDS: Heparin 5000 units/ml inj SUBQ SCH ×2 (09:00→21:00)
--- NOTE | 2020-01-15 10:00 | NUR ---
NURSE NOTES: Patient at bed, resting; side rails up x2, breaks engaged, bed at lowest position, bed alarm on; bed side Commode provided and encourage patient to call for help; call light within reach; will keep monitoring.
--- NOTE | 2020-01-15 11:42 | NUR ---
NURSE NOTES: OB stool collected, waiting for result;
--- NOTE | 2020-01-15 11:46 | Pulmonology Progress Note ---
Assessment/Plan Assessment/Plan ASSESSMENT: This is a 64-year-old male with no past medical history who presents with altered mental status, suspect underlying chronic liver disease, and possible hepatic encephalopathy. PLAN: 1. Follow ammonia. 2. Follow up abdominal ultrasound. 3. IV hydration. 4. Empiric antibiotics until cultures return. 5. GI eval noted Abhinav Wang M.D. Subjective Interval Events: [place] awake Constitutional: Reports: no symptoms HEENT: Repors: no symptoms Respiratory: Reports: no symptoms Cardiovascular: Reports: no symptoms Gastrointestinal/Abdominal: Reports: no symptoms Allergies: Coded Allergies: No Known Allergies (Unverified , 01/12/20) Objective Last 24 Hour Vital Signs Date Time Temp Pulse Resp B/P (MAP) Pulse Ox O2 Delivery O2 Flow Rate FiO2 01/15/20 09:00 Room Air 01/15/20 08:00 98.0 81 14 120/72 (88) 99 01/15/20 03:56 97.6 79 12 114/69 (84) 100 01/15/20 00:00 98.4 74 12 119/66 (83) 100 01/14/20 21:00 Room Air 01/14/20 20:00 98.1 71 12 112/65 (81) 99 01/14/20 16:00 97.2 66 18 107/72 (84) 100 01/14/20 12:00 97.0 67 20 106/59 (75) 98 Intake and Output 01/14/20 01/15/20 19:00 07:00 Intake Total 1087.5 ml 480 ml Balance 1087.5 ml 480 ml Intake Oral 300 ml 480 ml IV Total 787.5 ml # Voids 2 3 # Bowel Movements 3 General Appearance: no acute distress HEENT: normocephalic Respiratory/Chest: chest wall non-tender, lungs clear Cardiovascular: normal peripheral pulses Abdomen: normal bowel sounds Laboratory Tests 01/15/20 05:50: White Blood Count 4.4L, Red Blood Count 3.45L, Hemoglobin 11.5L, Hematocrit 32.1L, Mean Corpuscular Volume 93, Mean Corpuscular Hemoglobin 33.2H, Mean Corpuscular Hemoglobin Concent 35.7, Red Cell Distribution Width 11.4L, Platelet Count 82L, Mean Platelet Volume 6.8, Neutrophils (%) (Auto) , Lymphocytes (%) (Auto) , Monocytes (%) (Auto) , Eosinophils (%) (Auto) , Basophils (%) (Auto) , Neutrophils % (Manual) [Pending], Lymphocytes % (Manual) [Pending], Platelet Estimate [Pending], Platelet Morphology [Pending], Prothrombin Time 13.0H, Prothromb Time International Ratio 1.2H, Sodium Level 149H, Potassium Level 4.2, Chloride Level 117H, Carbon Dioxide Level 22, Anion Gap 10, Blood Urea Nitrogen 13, Creatinine 1.2, Estimat Glomerular Filtration Rate > 60, Glucose Level 134H, Calcium Level 8.4L, Magnesium Level 2.2, Iron Level 99, Total Iron Binding Capacity 171L, Percent Iron Saturation 58H, Unsaturated Iron Binding 72L, Total Bilirubin 1.7H, Direct Bilirubin 1.7H, Aspartate Amino Transf (AST/SGOT) 89H, Alanine Aminotransferase (ALT/SGPT) 53, Alkaline Phosphatase 51, Ammonia 80H, Total Protein 5.9L, Albumin 2.5L, Globulin 3.4, Albumin/Globulin Ratio 0.7L, Alpha Fetoprotein [Pending], Carcinoembryonic Antigen [Pending], Folate 19.7, Anti-Nuclear Antibody Screen [ Pending] 01/15/20 11:28: Stool Occult Blood [Pending] Current Medications Medications (Trade) Dose Ordered Sig/Chris Route PRN Reason Start Time Stop Time Status Last Admin Dose Admin Acetaminophen (Tylenol) 500 mg Q4H PRN ORAL Mild Pain (Pain Scale 1-3) 01/12/20 12:30 02/11/20 12:29 Haloperidol Lactate (Haldol) 2 mg Q6H PRN IM Agitation 01/12/20 16:00 02/26/20 15:59 Heparin Sodium (Porcine) (Heparin 5000 units/ml) 5,000 units EVERY 12 HOURS SUBQ 01/12/20 21:00 02/26/20 20:59 Lactulose (Cephulac) 30 gm THREE TIMES A DAY ORAL 01/13/20 13:00 02/12/20 12:59 01/15/20 09:00 Lorazepam (Ativan 2mg/ml 1ml) 1 mg Q4H PRN IV For Anxiety 01/12/20 16:00 01/19/20 15:59 01/14/20 05:33 Ondansetron HCl (Zofran) 4 mg Q6H PRN IVP Nausea & Vomiting 01/12/20 12:30 02/11/20 12:29 Piperacillin Sod/ Tazobactam Sod 3.375 gm/Sodium Chloride 110 ml @ 27.5 mls/hr EVERY 8 HOURS IVPB 01/12/20 17:00 01/17/20 16:59 01/15/20 05:28 Rifaximin (Xifaxan) 550 mg EVERY 12 HOURS ORAL 01/14/20 21:00 01/21/20 20:59 01/15/20 09:00 Risperidone (RisperDAL) 0.5 mg BEDTIME ORAL 01/13/20 21:00 02/27/20 20:59 01/14/20 20:54 Abhinav Wang MD Jan 15, 2020 11:46
[2020-01-15 12:00] VITALS: BP 131/60
[2020-01-15 16:00] VITALS: BP 136/73
--- NOTE | 2020-01-15 19:31 | NUR ---
NURSE NOTES: Patient is in bed, alert x1. On room air with no signs of distress or SOB. IV intact and patent. Fall precautions. Bed locked and in lowest position. Bed alarm activated, non-skid socks on and yellow gown. Bedside commode. Staff notified of fall risk. Will continue to monitor the patient.
--- NOTE | 2020-01-15 19:32 | NUR ---
HAND-OFF: Report given to LORY Russell. Endorsed to the incoming nurse that patient is risk for fall and bed side Commode provided; patient is resting, side rails up x2, breaks engaged, bed alarm on, bed at lowest position, call light within reach;
[2020-01-15 20:00] VITALS: BP 113/67
--- NOTE | 2020-01-15 23:25 | Psych Consult Progress Note ---
Psychiatry Progress Note Psychiatry Progress Note Medications Current Medications Medications (Trade) Dose Ordered Sig/Chris Route PRN Reason Start Time Stop Time Status Last Admin Dose Admin Acetaminophen (Tylenol) 500 mg Q4H PRN ORAL Mild Pain (Pain Scale 1-3) 01/12/20 12:30 02/11/20 12:29 Haloperidol Lactate (Haldol) 2 mg Q6H PRN IM Agitation 01/12/20 16:00 02/26/20 15:59 Heparin Sodium (Porcine) (Heparin 5000 units/ml) 5,000 units EVERY 12 HOURS SUBQ 01/12/20 21:00 02/26/20 20:59 Lactulose (Cephulac) 30 gm THREE TIMES A DAY ORAL 01/13/20 13:00 02/12/20 12:59 01/15/20 18:03 Lorazepam (Ativan 2mg/ml 1ml) 1 mg Q4H PRN IV For Anxiety 01/12/20 16:00 01/19/20 15:59 01/14/20 05:33 Ondansetron HCl (Zofran) 4 mg Q6H PRN IVP Nausea & Vomiting 01/12/20 12:30 02/11/20 12:29 Piperacillin Sod/ Tazobactam Sod 3.375 gm/Sodium Chloride 110 ml @ 27.5 mls/hr EVERY 8 HOURS IVPB 01/12/20 17:00 01/17/20 16:59 01/15/20 21:35 Rifaximin (Xifaxan) 550 mg EVERY 12 HOURS ORAL 01/14/20 21:00 01/21/20 20:59 01/15/20 21:26 Risperidone (RisperDAL) 0.5 mg BEDTIME ORAL 01/13/20 21:00 02/27/20 20:59 01/15/20 21:26 Neurological/Psychiatric: Reports: anxiety, depressed Allergies: Coded Allergies: No Known Allergies (Unverified , 01/12/20) Objective Data Height (Feet): 5 Height (Inches): 2.00 Weight (Pounds): 130 General Appearance: WD/WN, no apparent distress, alert, confused Additional Comments: alert and oriented times self, place. Mood is neutral. Affect is flat. Thought process, there is a paucity of thought content. Thought content, no suicidal or homicidal ideation. Cognition is impaired. Insight and judgment is impaired. Assessment/Plan [place] I: ASSESSMENT: Acute encephalopathy. Status: stable, not improved Assessment/Plan: PLAN: 1. Continue the risperidone 0.5 at bedtime. 2. Discussed with the nurse. Davin Swann MD Jan 15, 2020 23:25
[2020-01-16] VITALS: BP 124/71
[2020-01-16 04:00] VITALS: BP 114/62
[2020-01-16] MEDS: Piperacillin/Tazobactam 3.375 GM in NS 110 ML IVPB SCH ×2 (05:30→15:00)
--- NOTE | 2020-01-16 06:50 | General Progress Note ---
Assessment/Plan Problem List: (1) Anemia ICD Codes: D64.9 - Anemia, unspecified SNOMED: 481983814 (2) Renal insufficiency ICD Codes: N28.9 - Disorder of kidney and ureter, unspecified SNOMED: 560633162, 578264081 (3) Cirrhosis ICD Codes: K74.60 - Unspecified cirrhosis of liver SNOMED: 39246205 (4) Hepatic encephalopathy ICD Codes: K72.90 - Hepatic failure, unspecified without coma SNOMED: 27101562 Status: stable, not improved Assessment/Plan: lactulose>>> will decrease in half given diarrhea Xifaxan fu ammonia level fu AFP CT when Verifier improved on oral diet stool ob positive>>> given COVED pandemic will hold EGD and colonoscopy unless there is evidence of overt GIB needs out patient GI fu Subjective ROS Limited/Unobtainable: Yes Allergies: Coded Allergies: No Known Allergies (Unverified , 01/12/20) Objective Last 24 Hour Vital Signs Date Time Temp Pulse Resp B/P (MAP) Pulse Ox O2 Delivery O2 Flow Rate FiO2 01/16/20 04:00 97.9 69 14 114/62 (79) 98 01/16/20 00:00 98.1 69 12 124/71 (88) 98 01/15/20 21:00 Room Air 01/15/20 20:00 97.5 73 12 113/67 (82) 93 01/15/20 16:00 97.8 74 18 136/73 (94) 100 01/15/20 12:00 97.2 70 18 131/60 (83) 99 01/15/20 09:00 Room Air 01/15/20 08:00 98.0 81 14 120/72 (88) 99 Intake and Output 01/15/20 01/16/20 19:00 07:00 Intake Total 545.0 ml 240 ml Balance 545.0 ml 240 ml Intake Oral 380 ml 240 ml IV Total 165.0 ml # Voids 2 2 # Bowel Movements 4 3 Laboratory Tests 01/15/20 11:28: Stool Occult Blood Positive Height (Feet): 5 Height (Inches): 2.00 Weight (Pounds): 130 General Appearance: alert EENT: normal ENT inspection Neck: supple Cardiovascular: normal rate Respiratory/Chest: decreased breath sounds Abdomen: normal bowel sounds, non tender, soft Extremities: non-tender Vosoghi,Nick MD Jan 16, 2020 06:50
[2020-01-16] MEDS ORDERED: Omnipaque-300 100ml vial INJ PRN (07:00)
--- NOTE | 2020-01-16 07:40 | NUR ---
HAND-OFF: Report given to LORY Adams.
--- NOTE | 2020-01-16 07:41 | NUR ---
NURSE NOTES: Patient awake, sitting high everett position and eating breakfast; on room air, no sing of shortness of breath; no sing of chest pain; IV Left For-Arm 22G fluid running; patient fall risk, side rails up, breaks engaged, bed alarm on, breaks engaged; sing at the door that patient risk for fall, roomed closer to the nurse station; director of emergency nursing July aware; Commode within reach; will keep monitoring.
[2020-01-16 07:48] LABS: HEMATOCRIT 31.1 % (42.0-52.0); MEAN CORPUSCULAR VOLUME 93 FL (80-99); PLATELET COUNT 78 K/UL (150-450); RED BLOOD COUNT 3.32 M/UL (4.70-6.10); RED CELL DISTRIBUTION WIDTH 11.4 % (11.6-14.8); WHITE BLOOD COUNT 4.1 K/UL (4.8-10.8)
[2020-01-16 08:00] VITALS: BP 113/60
[2020-01-16 08:12] LABS: AMMONIA 58 umol/L (11-32)
[2020-01-16 08:20] LABS: ALANINE AMINOTRANSFERASE 54 U/L (12-78); ALBUMIN 2.2 G/DL (3.4-5.0); ALBUMIN/GLOBULIN RATIO 0.6 (1.0-2.7); ALKALINE PHOSPHATASE 50 U/L (46-116); ANION GAP 11 mmol/L (5-15); ASPARTATE AMINO TRANSFERASE 76 U/L (15-37); BILIRUBIN,TOTAL 1.7 MG/DL (0.2-1.0); BLOOD UREA NITROGEN 14 mg/dL (7-18); CALCIUM 8.5 MG/DL (8.5-10.1); CARBON DIOXIDE 23 MMOL/L (21-32); CHLORIDE 113 MMOL/L (98-107); CREATININE 1.1 MG/DL (0.55-1.30); POTASSIUM 3.8 MMOL/L (3.5-5.1); SODIUM 146 MMOL/L (136-145)
[2020-01-16 08:28] LABS: BILIRUBIN,DIRECT 0.5 MG/DL (0.0-0.3)
[2020-01-16] MEDS: Lactulose 20gm/30ml UDC ORAL SCH ×3 (08:40→17:22)
[2020-01-16] MEDS: Heparin 5000 units/ml inj SUBQ SCH (08:40)
--- NOTE | 2020-01-16 10:47 | Pulmonology Progress Note ---
Assessment/Plan Assessment/Plan ASSESSMENT: This is a 64-year-old male with no past medical history who presents with altered mental status, suspect underlying chronic liver disease, and hepatic encephalopathy. PLAN: 1. DC planning to SNF 2. Much improved Abhinav Wang M.D. Subjective Interval Events: Ambulating in hallway with assiastance and walker Constitutional: Reports: no symptoms HEENT: Repors: no symptoms Respiratory: Reports: no symptoms Cardiovascular: Reports: no symptoms Gastrointestinal/Abdominal: Reports: no symptoms Allergies: Coded Allergies: No Known Allergies (Unverified , 01/12/20) Objective Last 24 Hour Vital Signs Date Time Temp Pulse Resp B/P (MAP) Pulse Ox O2 Delivery O2 Flow Rate FiO2 01/16/20 09:00 Room Air 01/16/20 08:00 98.0 71 18 113/60 (77) 99 01/16/20 04:00 97.9 69 14 114/62 (79) 98 01/16/20 00:00 98.1 69 12 124/71 (88) 98 01/15/20 21:00 Room Air 01/15/20 20:00 97.5 73 12 113/67 (82) 93 01/15/20 16:00 97.8 74 18 136/73 (94) 100 01/15/20 12:00 97.2 70 18 131/60 (83) 99 Intake and Output 01/15/20 01/16/20 19:00 07:00 Intake Total 545.0 ml 267.5 ml Balance 545.0 ml 267.5 ml Intake Oral 380 ml 240 ml IV Total 165.0 ml 27.5 ml # Voids 2 2 # Bowel Movements 4 3 General Appearance: no acute distress HEENT: normocephalic Respiratory/Chest: chest wall non-tender Cardiovascular: normal peripheral pulses Abdomen: normal bowel sounds Laboratory Tests 01/15/20 11:28: Stool Occult Blood Positive 01/16/20 06:35: White Blood Count 4.1L, Red Blood Count 3.32L, Hemoglobin 11.0L, Hematocrit 31.1L, Mean Corpuscular Volume 93, Mean Corpuscular Hemoglobin 33.1H, Mean Corpuscular Hemoglobin Concent 35.4, Red Cell Distribution Width 11.4L, Platelet Count 78L, Mean Platelet Volume 6.2L, Neutrophils (%) (Auto) , Lymphocytes (%) (Auto) , Monocytes (%) (Auto) , Eosinophils (%) (Auto) , Basophils (%) (Auto) , Differential Total Cells Counted 100, Neutrophils % ( Manual) 54, Lymphocytes % (Manual) 34, Monocytes % (Manual) 5, Eosinophils % ( Manual) 7H, Basophils % (Manual) 0, Band Neutrophils 0, Platelet Estimate DecreasedL, Platelet Morphology Normal, Hypochromasia 1+, Sodium Level 146H, Potassium Level 3.8, Chloride Level 113H, Carbon Dioxide Level 23, Anion Gap 11 , Blood Urea Nitrogen 14, Creatinine 1.1, Estimat Glomerular Filtration Rate > 60, Glucose Level 127H, Calcium Level 8.5, Total Bilirubin 1.7H, Direct Bilirubin 0.5H, Aspartate Amino Transf (AST/SGOT) 76H, Alanine Aminotransferase (ALT/SGPT) 54, Alkaline Phosphatase 50, Ammonia 58H, Total Protein 5.6L, Albumin 2.2L, Globulin 3.4, Albumin/Globulin Ratio 0.6L Current Medications Medications (Trade) Dose Ordered Sig/Chris Route PRN Reason Start Time Stop Time Status Last Admin Dose Admin Acetaminophen (Tylenol) 500 mg Q4H PRN ORAL Mild Pain (Pain Scale 1-3) 01/12/20 12:30 02/11/20 12:29 Barium Sulfate (Readi-Cat 2) 450 ml NOW PRN ORAL Radiology Procedure 01/16/20 07:00 01/18/20 06:51 Haloperidol Lactate (Haldol) 2 mg Q6H PRN IM Agitation 01/12/20 16:00 02/26/20 15:59 Heparin Sodium (Porcine) (Heparin 5000 units/ml) 5,000 units EVERY 12 HOURS SUBQ 01/12/20 21:00 02/26/20 20:59 Iohexol (OMNIPAQUE-300 100ml) 100 ml NOW PRN INJ Radiology Procedure 01/16/20 07:00 01/18/20 06:51 Lactulose (Cephulac) 15 gm THREE TIMES A DAY ORAL 01/16/20 09:00 02/12/20 12:59 01/16/20 08:40 Lorazepam (Ativan 2mg/ml 1ml) 1 mg Q4H PRN IV For Anxiety 01/12/20 16:00 01/19/20 15:59 01/14/20 05:33 Ondansetron HCl (Zofran) 4 mg Q6H PRN IVP Nausea & Vomiting 01/12/20 12:30 02/11/20 12:29 Piperacillin Sod/ Tazobactam Sod 3.375 gm/Sodium Chloride 110 ml @ 27.5 mls/hr EVERY 8 HOURS IVPB 01/12/20 17:00 01/17/20 16:59 01/16/20 05:30 Rifaximin (Xifaxan) 550 mg EVERY 12 HOURS ORAL 01/14/20 21:00 01/21/20 20:59 01/16/20 08:40 Risperidone (RisperDAL) 0.5 mg BEDTIME ORAL 01/13/20 21:00 02/27/20 20:59 01/15/20 21:26 Abhinav Wang MD Jan 16, 2020 10:47
[2020-01-16] MEDS ORDERED: XIFAXAN550 MG ORAL (10:48)
[2020-01-16] MEDS ORDERED: LACTULOSE20 GM/301 ORAL (10:48)
[2020-01-16 12:00] VITALS: BP 112/64
--- NOTE | 2020-01-16 12:12 | NUR ---
NURSE NOTES: I got telephone consent for CT ABD W/Wo Contrast, witness by Charge Nurse, Rahul;
--- NOTE | 2020-01-16 13:38 | NUR ---
NURSE NOTES: Patient isn't on Restrain.
--- NOTE | 2020-01-16 14:51 | NUR ---
NURSE NOTES: Discharge planning Ceci is calling to discharge this patient to [facility] to room 303-C; however MD Kirkland plan to do CT Abdomen and Pelvis Wo/W contrast for tomorrow; I communicated MD Kirkland regarding the plan to discharge this patient today by MD Wang; waiting MD Kirkland;
--- NOTE | 2020-01-16 15:15 | NUR ---
NURSE NOTES: MD Kirkland cleared patient for discharge.
--- NOTE | 2020-01-16 15:28 | NUR ---
NURSE NOTES: Ceci meeting planner said she is going to arrange transportation and let me know, so that I can give report; waiting call back.
--- NOTE | 2020-01-16 15:50 | NUR ---
NURSE NOTES: According to Ceci, sampler pickup time for patient 0530, [facility] tel number [phone]; trip # [id number];
[2020-01-16 16:00] VITALS: BP 101/58
--- NOTE | 2020-01-16 16:32 | NUR ---
NURSE NOTES: Report given to Lynnette, Space Systems Operations Superintendent at [facility]; waiting for citrus picker;
--- NOTE | 2020-01-16 19:05 | NUR ---
NURSE NOTES: Patient discharge to [facility] ([facility] IV access and name tag removed upon discharge; report given to Lynnette, supervisory civil engineer at [facility]; patient's belonging isn't in patient room; Charge nurse Rahul is aware that patient's belonging lost; patient informed to follow up with the lost items with us; patient was stable upon discharge.
--- NOTE | 2020-01-17 15:47 | NUR ---
*-* INSURANCE *-* UPDATED CLINICALS AND REVIEWS HAVE BEEN FAXED TO: [facility]/[place]) [facility] NCM: NICKY P: [phone] F: [phone] (VERIFIED WITH KARRI AT [facility], THAT THEY ARE AFFILIATED WITH [facility] AND THAT THEY HANDLE THE ADMISSIONS, ADVISED TO FAX FACE SHEET OVER TO [facility]) & [place] F: [phone] Addendum: 01/17/20 at 1549 by CHAR BROWN CM NO DISCHARGE SUMMARY I THE SYSTEM UNABLE TO FAX
--- NOTE | 2020-01-18 03:00 | Progress Note ---
DATE: 01/16/2020 SUBJECTIVE: Patient is doing well. No behavior issues noted. Patient is awaiting placement. Calm, cooperative. MENTAL STATUS EXAMINATION: Patient is alert, disoriented. Mood is neutral. Affect is flat. Thought process is concrete. Thought content, no suicidal or homicidal ideation. ASSESSMENT: Stable. PLAN: We will continue current medications. Davin Swann M.D. DR: ROVERTO JOB#: [id number] CC:
--- NOTE | 2020-01-18 11:21 | NUR ---
*-* INSURANCE *-* UNABLE TO SEND DISCHARGE SUMMARY NOT IN THE SYSTEM, Addendum: 01/19/20 at 0932 by CHAR BROWN *-* INSURANCE AUTHORIZATION *-* RECEIVED AUTHORIZATION VIA FAX, FAXED TO ADMITTING: # [id number] 14 DAY LOS 01/11/ ACUTE LOC HAS BEEN APPROVED.
--- NOTE | 2020-01-18 11:49 | Discharge Summary ---
Discharge Summary Discharge Summary _ DATE OF ADMISSION: 01/12/2020 DATE OF DISCHARGE: 01/16/2020 DISCHARGED BY: Dr. Romano REASON FOR ADMISSION: 64 years old male with no stated past medical history, was found on the street , confused ,and brought to emergency room for further evaluation. CT scan of the head revealed no acute intracranial bleeding or mass-effect. Chronic age-related changes and cerebral volume loss, mostly cortical and cerebellar noted. Laboratory work-up revealed mild leukocytosis WBC 11.6, hemoglobin 12.7, hematocrit 35.5. Platelet count 99. BUN 32, creatinine 2.2. Glucose 163. Stable electrolytes. Total bilirubin 2.1, direct bilirubin 0.8. AST 60, ALT 43. Ammonia level 68. Albumin 3.3. Urine toxicology screen was negative. Serum alcohol was less than 3. Urinalysis revealed no evidence of urinary tract infection. Abdominal ultrasound was negative for gallstones or dilated bile ducts. Coarsened hepatic echogenicity with surface nodularity was suggestive of cirrhosis. 2.7 x 2.9 cm exophytic left lower left lobe liver mass versus normal lobulated parenchyma. 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 X-ray of the right knee (done due to complain of right knee pain) revealed no evidence of acute fracture. No dislocation. No effusion. Chest x-ray demonstrated no acute cardiopulmonary pathology. Patient admitted with encephalopathy for further management. CONSULTANTS: pulmonary Dr. Wang GI specialist Dr. Kirkland psychiatrist Dr. Swann [facility] COURSE: Patient admitted to medical surgical floor. Started on intravenous hydration and empiric antibiotics. Leukocytosis resolved next day Patient started on lactulose. Ammonia level the next day 177. Xifaxan was added to lactulose for management of Hepatic encephalopathia as per GI specialist. Ammonia level was trended. GI specialist recommended repeat CT scan when creatinine improved with IV contrast. CEA 5.5 , alpha-fetoprotein within normal limits. Hepatitis panel revealed no evidence of hepatitis C Hemoglobin and hematocrit were closely monitored to keep hemoglobin above 7. Anemia work-up revealed evidence of anemia of chronic disease. Stool for occult blood was positive. Given current pandemic situation due to COVID-19, EGD and colonoscopy were held , since there was no evidence of overt GI bleeding. Patient will need to follow-up as outpatient with GI specialist. AST remained elevated, ALT within normal limits. Total bilirubin down to 1.7. Prior to discharge hemoglobin 11 , hematocrit 31.1. Platelet trended down from initial 99 down to 77 upon discharge. Thrombocytopenia was likely due to chronic liver disease. Monitor platelet count as outpatient. SIGRID screen was ordered and pending at the time of this dictation Renal parameters and electrolytes were closely monitored, electrolytes corrected as needed. With IV hydration BUN from 32 down to 14 and creatinine from 2.2 down to 1.1. Acute kidney injury resolved , likely was due to dehydration. Psychiatric medication regimen provided as per psychiatrist recommendation. Reality orientation provided. Patient clinically stabilized . Ammonia down to 68, mental status improved. Acute kidney injury resolved . Initial leukocytosis resolved. Patient clinically stabilized and was ready for [facility] to [facility] for [facility] of care. FINAL DIAGNOSES: Altered level of consciousness due to hepatic encephalopathy Chronic liver disease Acute kidney injury- resolved Anemia Stool OB positive DISCHARGE MEDICATIONS: See Medication Reconciliation list. DISCHARGE INSTRUCTIONS: Patient was discharged to the [facility] facility. Follow up with medical doctor at the facility. Patient will need to follow-up as outpatient with a GI specialist. Recommended CT scan of abdomen and pelvis with IV contrast. Monitor platelet count I have been assigned to dictate discharge summary for this account. I was not involved in the patient's management. Silvana Vega NP Jan 18, 2020 11:49
--- NOTE | 2020-01-19 09:33 | NUR ---
*-* INSURANCE *-* DISCHARGE SUMMARU HAS BEEN FAXED TO: [facility] ([facility]) [facility] NC: NICKY P: [phone] F: [phone] (VERIFIED WITH KARRI AT [facility], THAT THEY ARE AFFILIATED WITH [facility] AND THAT THEY HANDLE THE ADMISSIONS, ADVISED TO FAX FACE SHEET OVER TO [facility]) & HELENA F: [phone]
== END 2020-01-16 19:15 | disposition short-term general hospital (02) | DRG 279 ==
LOC: EDBD 09:26 → EMR 10:05 → 4W 10:39 → EDBEDREQ 11:54 → 4E 15:30
DX: K72.90 Hepatic failure, unspecified without coma (principal); K70.30 Alcoholic cirrhosis of liver without ascites; N17.9 Acute kidney failure, unspecified; E11.9 Type 2 diabetes mellitus without complications; I10 Essential (primary) hypertension; D69.6 Thrombocytopenia, unspecified; D64.9 Anemia, unspecified; N28.9 Disorder of kidney and ureter, unspecified
CPT/HCPCS: 36415; 70450; 71045; 76700; 80053; 80307; 81003; 82105; 82140; 82248; 82270; 82378; 82746; 83540; 83550; 83735; 85007; 85025; 85610; 86039; 86803; 87340; 87517; 99285; G0480